=== PATIENT | female | born 1950 | race Caucasian/White ===

== ENCOUNTER 2017-05-04 17:52 | Outpatient (CLI) | payer SELFPAY | END 2017-05-04 17:53 | disposition EMS.NT | LOC: EMS 17:52 | PROVIDERS: ATTEND Surgery | DX: R53.83 Other fatigue (principal); R73.09 Other abnormal glucose ==

== ENCOUNTER 2022-03-10 07:58 | Outpatient (CLI) | payer MEDICARE, MEDICAID ==
[2022-03-10 08:39] LABS: BUN - BLOOD UREA NITROGEN 24 mg/dL (6-20); CALCIUM 9.3 mg/dL (8.5-10.3); CARBON DIOXIDE - CO2 24 mmol/L (21-32); CHLORIDE 104 mmol/L (101-111); CHOLESTEROL 220 mg/dL; CREATININE 0.9 mg/dL (0.4-1.0); GFR - MDRD 62 (>89); GLUCOSE 149 mg/dL (70-100); HDL CHOLESTEROL 111 mg/dL; LDL CHOLESTEROL,CALCULATED 97 mg/dL; LDL/HDL RATIO 0.9 (<4.4); POTASSIUM 4.4 mmol/L (3.5-5.0); SODIUM 138 mmol/L (135-145); TRIGLYCERIDES 60 mg/dL; VLDL CHOLESTEROL 12 mg/dL
[2022-03-10 08:40] LABS: CREATININE,URINE 71.4 mg/dL; MICROALBUM/CREATININE RATIO,UR 8.4 ug/mg (<30.0); MICROALBUMIN,URINE 0.6 mg/dL (0-300.0)
[2022-03-10 11:36] LABS: ESTIMATED AVERAGE GLUCOSE 120 mg/dL (70-100); HEMOGLOBIN A1c% 5.8 % (4.27-6.07)
== END 2022-03-10 07:59 | disposition home or self-care (01) ==
LOC: LAB 07:58
PROVIDERS: ATTEND Internal Medicine Endocrinology, Diabetes & Metabolism
DX: E11.42 Type 2 diabetes mellitus with diabetic polyneuropathy (principal); Z79.4 Long term (current) use of insulin
CPT/HCPCS: 36415; 80048; 80061; 82043; 82570; 82985; 83036; 83721

== ENCOUNTER 2022-06-16 10:19 | Outpatient (CLI) | payer MEDICARE, MEDICAID ==
[2022-06-16 10:55] LABS: ESTIMATED AVERAGE GLUCOSE 117 mg/dL (70-100); HEMOGLOBIN A1c% 5.7 % (4.27-6.07)
[2022-06-16 11:09] LABS: CREATININE,URINE 182.8 mg/dL; MICROALBUM/CREATININE RATIO,UR 3.8 ug/mg (<30.0); MICROALBUMIN,URINE 0.7 mg/dL (0-300.0)
[2022-06-16 11:09] LABS: ALBUMIN 2.8 g/dL (3.2-5.5); ALKALINE PHOSPHATASE 79 IU/L (42-121); ALT ALANINE AMINOTRANSFERASE < 10 IU/L (10-60); AST ASPARTATE AMINOTRANSFERASE 32 IU/L (10-42); BUN - BLOOD UREA NITROGEN 18 mg/dL (6-20); CALCIUM 9.3 mg/dL (8.5-10.3); CARBON DIOXIDE - CO2 31 mmol/L (21-32); CHLORIDE 107 mmol/L (101-111); CHOL/HDL RATIO 2.3 (<4.4); CHOLESTEROL 205 mg/dL; CREATININE 0.9 mg/dL (0.4-1.0); GFR - MDRD 62 (>89); GLUCOSE 115 mg/dL (70-100); HDL CHOLESTEROL 88 mg/dL; LDL CHOLESTEROL,CALCULATED 103 mg/dL; LDL/HDL RATIO 1.2 (<4.4); POTASSIUM 4.3 mmol/L (3.5-5.0); SODIUM 142 mmol/L (135-145); TOTAL PROTEIN 5.7 g/dL (6.7-8.2); TRIGLYCERIDES 68 mg/dL; VLDL CHOLESTEROL 14 mg/dL
== END 2022-06-16 10:20 | disposition home or self-care (01) ==
LOC: LAB 10:19
PROVIDERS: ATTEND Internal Medicine Endocrinology, Diabetes & Metabolism
DX: E11.42 Type 2 diabetes mellitus with diabetic polyneuropathy (principal); Z79.4 Long term (current) use of insulin
CPT/HCPCS: 36415; 80053; 80061; 82043; 82570; 82985; 83036; 83721

== ENCOUNTER 2022-09-30 09:56 | Outpatient (CLI) | payer MEDICARE, MEDICAID ==
[2022-09-30 10:32] LABS: CREATININE,URINE 77.8 mg/dL; MICROALBUM/CREATININE RATIO,UR 5.1 ug/mg (<30.0); MICROALBUMIN,URINE 0.4 mg/dL (0-300.0)
[2022-09-30 11:51] LABS: ESTIMATED AVERAGE GLUCOSE 131 mg/dL (70-100); HEMOGLOBIN A1c% 6.2 % (4.27-6.07)
[2022-09-30 20:35] LABS: ALBUMIN 3.5 g/dL (3.2-5.5); ALBUMIN/GLOBULIN RATIO 1.1 (1.0-2.2); ALKALINE PHOSPHATASE 77 IU/L (42-121); ALT ALANINE AMINOTRANSFERASE 22 IU/L (10-60); AST ASPARTATE AMINOTRANSFERASE 38 IU/L (10-42); BILIRUBIN,TOTAL 1.9 mg/dL (0.2-1.0); BUN - BLOOD UREA NITROGEN 26 mg/dL (6-20); CALCIUM 9.1 mg/dL (8.5-10.3); CARBON DIOXIDE - CO2 28 mmol/L (21-32); CHLORIDE 103 mmol/L (101-111); CHOL/HDL RATIO 1.9 (<4.4); CHOLESTEROL 213 mg/dL; CREATININE 1.1 mg/dL (0.4-1.0); GFR - MDRD 49 (>89); GLUCOSE 156 mg/dL (70-100); HDL CHOLESTEROL 112 mg/dL; LDL CHOLESTEROL,CALCULATED 89 mg/dL; LDL/HDL RATIO 0.8 (<4.4); POTASSIUM 4.4 mmol/L (3.5-5.0); SODIUM 140 mmol/L (135-145); TOTAL PROTEIN 6.6 g/dL (6.7-8.2); TRIGLYCERIDES 62 mg/dL; VLDL CHOLESTEROL 12 mg/dL
== END 2022-09-30 09:57 | disposition home or self-care (01) ==
LOC: LAB 09:56
PROVIDERS: ATTEND Internal Medicine Endocrinology, Diabetes & Metabolism
DX: E11.42 Type 2 diabetes mellitus with diabetic polyneuropathy (principal); Z79.4 Long term (current) use of insulin
CPT/HCPCS: 36415; 80053; 80061; 82043; 82570; 82985; 83036; 83721

== ENCOUNTER 2023-03-12 08:30 | Outpatient (CLI) | payer MEDICARE, MEDICAID ==
[2023-03-12 09:09] LABS: ALBUMIN 3.4 g/dL (3.2-5.5); ALBUMIN/GLOBULIN RATIO 1.3 (1.0-2.2); ALKALINE PHOSPHATASE 91 IU/L (42-121); ALT ALANINE AMINOTRANSFERASE 16 IU/L (10-60); AST ASPARTATE AMINOTRANSFERASE 28 IU/L (10-42); BILIRUBIN,TOTAL 1.8 mg/dL (0.2-1.0); BUN - BLOOD UREA NITROGEN 24 mg/dL (6-20); CALCIUM 9.6 mg/dL (8.5-10.3); CARBON DIOXIDE - CO2 27 mmol/L (21-32); CHLORIDE 109 mmol/L (101-111); CHOL/HDL RATIO 2.2 (<4.4); CHOLESTEROL 168 mg/dL; GFR - MDRD 55 (>89); GLUCOSE 123 mg/dL (74-104); HDL CHOLESTEROL 77 mg/dL; LDL CHOLESTEROL,CALCULATED 70 mg/dL; LDL/HDL RATIO 0.9 (<4.4); POTASSIUM 4.4 mmol/L (3.5-4.5); SODIUM 141 mmol/L (135-145); TOTAL PROTEIN 6.1 g/dL (6.4-8.9); TRIGLYCERIDES 104 mg/dL (48-352); VLDL CHOLESTEROL 21 mg/dL
[2023-03-12 09:10] LABS: CREATININE,URINE 60.8 mg/dL
[2023-03-12 09:16] LABS: MICROALBUMIN,URINE < 0.7 mg/dL
[2023-03-12 11:00] LABS: ESTIMATED AVERAGE GLUCOSE 117 mg/dL (70-100); HEMOGLOBIN A1c% 5.7 % (4.27-6.07)
== END 2023-03-12 08:31 | disposition home or self-care (01) ==
LOC: LAB 08:30
PROVIDERS: ATTEND Internal Medicine Endocrinology, Diabetes & Metabolism
DX: E11.42 Type 2 diabetes mellitus with diabetic polyneuropathy (principal); Z79.4 Long term (current) use of insulin
CPT/HCPCS: 36415; 80053; 80061; 82043; 82570; 82985; 83036; 83721

== ENCOUNTER 2023-09-13 22:08 | Outpatient (CLI) | payer MEDICARE, MEDICAID | END 2023-09-13 23:59 | disposition critical access hospital (66) | LOC: EMS 22:08 | DX: R19.7 Diarrhea, unspecified (principal); R53.83 Other fatigue; R63.0 Anorexia; R53.1 Weakness; R60.0 Localized edema | CPT/HCPCS: A0425; A0429 ==

== ENCOUNTER 2023-09-13 22:19 | Emergency (ER) | payer MEDICARE, MEDICAID ==
[2023-09-13] MEDS: SODIUM CHLORIDE 0.9% 1,000 ML IV STA (23:07)
[2023-09-13 23:15] LABS: BASOPHILS # (AUTO) 0.1 10^3/uL (0.0-0.1); BASOPHILS % (AUTO) 0.4 %; EOSINOPHILS # (AUTO) 0.5 10^3/uL (0.0-0.7); EOSINOPHILS % (AUTO) 3.8 %; HCT - HEMATOCRIT 27.9 % (37.0-47.0); HGB - HEMOGLOBIN 9.4 g/dL (12.0-16.0); LYMPHOCYTES # (AUTO) 0.9 10^3/uL (1.5-3.5); LYMPHOCYTES % (AUTO) 7.4 %; MEAN CORPUSCULAR HEMOGLOBIN 32.1 pg (27.0-31.0); MEAN CORPUSCULAR HGB CONC 33.7 g/dL (32.0-36.0); MEAN CORPUSCULAR VOLUME 95.2 fL (81.0-99.0); MEAN PLATELET VOLUME 9.6 fL (7.9-10.8); MONOCYTES # (AUTO) 1.9 10^3/uL (0.0-1.0); MONOCYTES % (AUTO) 15.9 %; NEUTROPHILS # (AUTO) 8.3 10^3/uL (1.5-6.6); NEUTROPHILS % (AUTO) 70.5 %; NRBC ABSOLUTE COUNT (AUTO) 0.06 x10^3/uL; NUCLEATED RED BLOOD CELLS AUTO 0.5 /100WBC; PLT - PLATELET COUNT 73 10^3/uL (130-450); RED BLOOD COUNT 2.93 10^6/uL (4.20-5.40); RED CELL DISTRIBUTION WIDTH 24.5 % (12.0-15.0); WHITE BLOOD COUNT 11.7 x10^3/uL (4.8-10.8)
[2023-09-13 23:23] LABS: SLIDE REVIEW? Indicated
--- NOTE | 2023-09-13 23:26 | ED Physician Documentation ---
History of Present Illness - Stated complaint Stated Complaint: GEN WEAKNESS - Chief complaint Chief Complaint: General - History obtained from History obtained from: Patient, Family, EMS - Additonal information Additional information: HPI from EMS, patient, and the patient's (who is in the ED at patient's bedside. called 911 due to patient exhibiting profound, generalized weakness. says that she had gradual onset of weakness approximately 1 week ago associated with diarrhea, for which she was admitted to [facility] from 09/05 until discharge 09/10. says that, since being discharged, her diarrhea has steadily worsened along with the progressive generalized weakness. He says that the weakness has gotten to the point that he can no longer get her to stand up or even hold light objects such as a bottle of water; the weakness is not lateralized to either side. Patient's past medical history includes alcoholic cirrhosis, varices, portal hypertension, hepatic encephalopathy status post TIPS, Parkinson's disease, diabetes, and colon cancer status post right hemicolectomy with pulmonary metastases. says that patient's PCP as well as all of her specialist are affiliated with [facility], and that he would have driven her there but that she was so weak that he could not even get her to stand little and get into the car. Per , patient's mental status is currently at her baseline. says that patient had her first IV chemotherapy 3 weeks ago and was put on a 2-week course of p.o. chemotherapy, and is currently in a 1-week pause and the oral chemotherapy. He says that she was supposed to receive her second round of IV chemotherapy on 09/09, but this was not given due to her diarrhea and profound weakness. Says he is not sure as to when she is supposed to get her next dose of IV or oral chemotherapy and he had plan to contact the oncologist later today to inquire about this issue. Patient and have not noticed blood in her stool. says she had mild darkening of otherwise brown stool earlier today, but he notes he also had given her pepto-bismol. He also has been giving her immodium without improvement in the diarrhea. Denies nausea, vomiting but says patient has had increasingly poor appetite and, as a result, poor PO intake over past 2-3 days. Review of Systems Constitutional: reports: Fatigue. denies: Fever, Chills, Sweats Cardiac: reports: Reviewed and negative Respiratory: reports: Reviewed and negative GI: reports: Diarrhea. denies: Abdominal Pain, Abdominal Swelling, Nausea, Vomiting, Constipation, Hematemesis, Bloody / black stool Neurologic: reports: Generalized weakness. denies: Focal weakness, Numbness, Headache PD PAST MEDICAL HISTORY - Past Medical History Past Medical History: Yes - Past Surgical History Past Surgical History: Yes - Present Medications Home Medications: Ambulatory Orders Medication Instructions Recorded Confirmed Alendronate [Fosamax] 70 mg PO Q7D 09/14/23 09/14/23 Alpha Lipoic Acid 600 mg PO DAILY 09/14/23 09/14/23 Capecitabine [Xeloda] 1,000 mg PO BID 09/14/23 09/14/23 Carbidopa/Levodopa ER 50/200 1 tab PO HS 09/14/23 09/14/23 [Sinemet Cr 50 mg/200 mg] Carbidopa/Levodopa ER 50/200 2 tab PO TID 09/14/23 09/14/23 [Sinemet Cr 50 mg/200 mg] Cholecalciferol (Vitamin D3) 1 cap PO DAILY 09/14/23 09/14/23 [Is-D-10,000] Dextrose 40% Gel [Glutose 40% Gel] See Rx Instructions .ROUTE .COMPLEX 09/14/23 09/14/23 Folic Acid 0.4 mg PO DAILY 09/14/23 09/14/23 Furosemide [Lasix] 80 mg PO QDLUNCH 09/14/23 09/14/23 Glucagon [Gvoke Hypopen 2-Pack] 1 mg SUBQ ONCE PRN 09/14/23 09/14/23 Insulin Glargine [Lantus Solostar] See Rx Instructions .ROUTE 09/14/23 09/14/23 .COMPLEX MDD 32 units Insulin Lispro [Insulin Lispro See Rx Instructions .ROUTE .COMPLEX 09/14/23 09/14/23 Kwikpen U-100] Lactulose 30 ml PO TID 09/14/23 09/14/23 Lidocaine/Prilocain 2.5% Cream 1 applic TOP PRN PRN 09/14/23 09/14/23 [Emla 2.5% Cream] Lisinopril [Zestril] 1 tab PO DAILY 09/14/23 09/14/23 Magnesium Oxide [Magnesium] 200 mg PO HS 09/14/23 09/14/23 Melatonin 3 tab PO HS 09/14/23 09/14/23 Multivitamin [Theragran] 1 tab PO DAILY 09/14/23 09/14/23 Omeprazole 1 cap PO DAILY 09/14/23 09/14/23 PARoxetine HCL [Paxil] 40 mg PO DAILY 09/14/23 09/14/23 Pregabalin [Lyrica] 100 mg PO BID 09/14/23 09/14/23 Spironolactone [Aldactone] 2 tab PO DAILY 09/14/23 09/14/23 Vitc/E/Zinc/Copper/Lutein/Zeax 1 tab PO BID 09/14/23 09/14/23 [Icaps Areds2 Tablet] levOCARNitine [l-Carnitine] 250 mg PO TIDWM 09/14/23 09/14/23 rifAXIMin [Xifaxan] 550 mg PO BID 09/14/23 09/14/23 - Allergies Allergies/Adverse Reactions: Allergies Allergy/AdvReac Type Severity Reaction Status Date / Time No Known Drug Allergies Allergy Verified 09/13/23 22:24 - Social History Does the pt smoke?: No Smoking Status: Never smoker Does the pt drink ETOH?: No Does the pt have substance abuse?: No - Immunizations Immunizations are current?: Yes - POLST Patient has POLST: No PD ED PE NORMAL - Vitals Vital signs reviewed: Yes - General General: Alert and oriented X 3, No acute distress, Well developed/nourished - HEENT HEENT: Other (tacky/pasty mucous membranes) - Cardiac Cardiac: RRR - Respiratory Respiratory: No respiratory distress, Clear bilaterally - Abdomen Abdomen: Soft, Non tender, Non distended - Derm Derm: Normal color, Warm and dry PD ED PE EXPANDED - HEENT HEENT: Other (subtle facial edema, most notably bilateral infraorbital) - Cardiac Cardiac: Murmur Present (diffuse 3/6 LEO, most pronounced at LSB and cardiac apex) - Abdomen Abdomen: Hyperactive BS - Extremities Extremities: Pedal edema bilateral Results - Vitals Vitals: Vital Signs - 24 hr 09/13/23 09/13/23 09/14/23 22:24 23:37 01:00 Temperature 37.5 C 37.2 C Heart Rate 94 92 98 Respiratory 24 16 18 Rate Blood Pressure 161/55 H 161/61 H 156/58 H O2 Saturation 100 100 100 09/14/23 09/14/23 03:00 03:14 Temperature Heart Rate 88 70 Respiratory 19 18 Rate Blood Pressure 145/44 H 143/93 H O2 Saturation 100 99 Oxygen O2 Source Room air - Labs Labs: Laboratory Tests 09/13/23 09/13/23 09/14/23 23:04 23:04 00:56 WBC 11.7 H RBC 2.93 L Hgb 9.4 L Hct 27.9 L MCV 95.2 MCH 32.1 H MCHC 33.7 RDW 24.5 H Plt Count 73 L MPV 9.6 Neut # (Auto) 8.3 H Lymph # (Auto) 0.9 L Garvin # (Auto) 1.9 H Eos # (Auto) 0.5 Baso # (Auto) 0.1 Absolute Nucleated RBC 0.06 Nucleated RBC % 0.5 Manual Slide Review Indicated Platelet Estimate DECREASED (<130,000) Platelet Morphology NORMAL APPEARANCE Sodium 143 Potassium 3.9 Chloride 121 H* Carbon Dioxide 14 L Anion Gap 8.0 BUN 33 H Creatinine 1.3 Estimated GFR (MDRD) 40 L Glucose 151 H Calcium 8.8 Total Bilirubin 3.0 H AST 27 ALT 4 L Alkaline Phosphatase 80 Ammonia 86.5 H* B-Natriuretic Peptide Total Protein 4.3 L Albumin 2.4 L Globulin 1.9 L Albumin/Globulin Ratio 1.3 Lipase 16 Nasal Influenza B PCR Nasal Influenza A PCR Nasal RSV (PCR) Nasal SARS-CoV-2 (PCR) Stl C. diff Tox B Gene 09/14/23 09/14/23 09/14/23 00:56 01:20 01:32 WBC RBC Hgb Hct MCV MCH MCHC RDW Plt Count MPV Neut # (Auto) Lymph # (Auto) Garvin # (Auto) Eos # (Auto) Baso # (Auto) Absolute Nucleated RBC Nucleated RBC % Manual Slide Review Platelet Estimate Platelet Morphology Sodium Potassium Chloride Carbon Dioxide Anion Gap BUN Creatinine Estimated GFR (MDRD) Glucose Calcium Total Bilirubin AST ALT Alkaline Phosphatase Ammonia B-Natriuretic Peptide 350 H Total Protein Albumin Globulin Albumin/Globulin Ratio Lipase Nasal Influenza B PCR NOT DETECTED Nasal Influenza A PCR NOT DETECTED Nasal RSV (PCR) NOT DETECTED Nasal SARS-CoV-2 (PCR) NOT DETECTED Stl C. diff Tox B Gene NEGATIVE PD Medical Decision Making - ED course Complexity details: reviewed old records (Discharge summary from [facility] requested, faxed to this ED, and reviewed by me), reviewed results, re-evaluated patient, considered differential, d/w patient, d/w family ED course: Patient with a complicated past medical history (see HPI, above), presents for worsening generalized weakness and diarrhea that has been ongoing for the past 7 to 10 days. She was recently inpatient at [facility], but the patient's says both the diarrhea and the weakness have steadily progressed since being discharged home to the point that he is no longer able to care for patient including unable to perform basic care such as toileting. Mild leukocytosis (WBC 11.7), mild anemia (hemoglobin 9.4), and thrombocytopenia (platelets 73). These results are comparable to the results when she was inpatient [facility], except for the anemia which is significantly improved. This might be due to hemoconcentration. Chloride is critically high (121) with CO2 14. This is consistent with a metabolic acidosis which certainly could be explained due to diarrheal losses. Mildly elevated BUN (33) with creatinine 1.3, GFR 40. Blood sugar is 151. Bilirubin is elevated at 3.0, but her lipase, AST are normal and ALT is below normal range. She is given 1 L normal saline IV. A stool sample is collected and sent for C. difficile, results pending at the time of this dictation. Patient's profound weakness and ongoing fluid losses from diarrhea indicate need for inpatient treatment. Given her complex past medical history, patient would benefit from transfer to higher level of care. Fortunately, there are beds pito ilable at [facility]. I briefly spoke with the patient's oncologist who happens to be the oncologist on-call at [facility]; he agrees with inpatient treatment, recommends I speak with [facility] hospitalist. I then was put in touch with the on-call hospitalist at [facility] (Dr. Kessler) who accepts transfer to [facility]. Departure - Departure Disposition: 02 Transfer Acute Care Hosp Clinical Impression: Weakness Diarrhea Qualifiers: Diarrhea type: unspecified type Qualified Code(s): R19.7 - Diarrhea, unspecified Condition: Fair Forms: PCP List Discharge Date/Time: 09/14/23 04:19
[2023-09-13 23:42] LABS: ALBUMIN 2.4 g/dL (3.2-5.5); ALBUMIN/GLOBULIN RATIO 1.3 (1.0-2.2); CALCIUM 8.8 mg/dL (8.5-10.3); CREATININE 1.3 mg/dL (0.6-1.3); POTASSIUM 3.9 mmol/L (3.5-4.5); TOTAL PROTEIN 4.3 g/dL (6.4-8.9)
[2023-09-14 00:08] LABS: PLATELET ESTIMATE, MANUAL DECREASED (<130,000) (NORMAL); PLATELET MORPHOLOGY NORMAL APPEARANCE (NORMAL)
[2023-09-14 03:23] VITALS: BP 143/93; O2SAT 99
[2023-09-14] MEDS: SODIUM CHLORIDE 0.9% 1,000 ML IV STA (03:37)
[2023-09-14 03:38] LABS: INFLUENZA A- RESP PCR PANEL NOT DETECTED; INFLUENZA B - RESP PCR PANEL NOT DETECTED; RSV- RESP PCR PANEL NOT DETECTED; SARS-CoV-2 -RESP PCR PANEL NOT DETECTED
== END 2023-09-14 04:19 | disposition short-term general hospital (02) ==
LOC: EDUNIT# → ED 22:19
DX: R53.1 Weakness (principal); R19.7 Diarrhea, unspecified; C18.9 Malignant neoplasm of colon, unspecified; C78.00 Secondary malignant neoplasm of unspecified lung; G20.A1 Parkinson's disease without dyskinesia, without mention of fluctuations; K70.30 Alcoholic cirrhosis of liver without ascites; K76.6 Portal hypertension; E11.9 Type 2 diabetes mellitus without complications; Z79.60 Long term (current) use of unspecified immunomodulators and immunosuppressants; Z79.4 Long term (current) use of insulin
CPT/HCPCS: 36415; 80053; 82140; 83690; 83880; 85025; 87493; 87637; 96360; 96361; 99285

== ENCOUNTER 2023-09-14 04:16 | Outpatient (CLI) | payer MEDICARE, MEDICAID | END 2023-09-14 23:59 | disposition short-term general hospital (02) | LOC: EMS 04:16 | PROVIDERS: ATTEND Emergency Medicine | DX: R53.1 Weakness (principal); E86.0 Dehydration | CPT/HCPCS: A0425; A0427 ==